=== PATIENT | female | born 1945 | race Caucasian/White ===

== ENCOUNTER 2020-03-14 12:09 | Day surgery (SDC) | payer OTHER ==
[2020-03-07 13:32] VITALS: BMI 34.9
[2020-03-14] MEDS ORDERED: ROPIVACAINE HCL 0.5% 30ML VIAL ONE (13:13)
[2020-03-14] MEDS ORDERED: MIDAZOLAM HCL 2 MG/2 ML SINGLE DOSE VIAL ONE (13:13)
[2020-03-14] MEDS ORDERED: PROPOFOL 20 ML ONE ×2 (13:26→14:11)
[2020-03-14] MEDS ORDERED: DEXAMETHASONE SOD PHOSPHATE 4 MG/1 ML VIAL ONE ×2 (13:26→14:07)
[2020-03-14] MEDS ORDERED: ONDANSETRON 4 MG/2 ML VIAL ONE ×3 (13:26→16:25)
[2020-03-14] MEDS ORDERED: EPHEDRINE SULFATE/0.9% NACL/PF 50 MG/10 ML SYRINGE NR ONE (13:36)
[2020-03-14] MEDS ORDERED: KETOROLAC TROMETHAMINE 30 MG/1 ML VIAL ONE (14:00)
[2020-03-14] MEDS ORDERED: SUCCINYLCHOLINE CHLORIDE 200 MG/10 ML SYRINGE ONE (14:12)
[2020-03-14] MEDS ORDERED: ceFAZolin SODIUM 1 GM VIAL ONE (14:19)
[2020-03-14] MEDS ORDERED: ONDANSETRON 4 MG/2 ML VIAL IVPUSH ONE (16:18)
--- NOTE | 2020-03-14 16:20 | OP ---
DATE OF OPERATION: 03/14/2020 PREOPERATIVE DIAGNOSIS: Left shoulder rotator cuff tear. POSTOPERATIVE DIAGNOSES: 1. Left shoulder supraspinatus rotator cuff tear. 2. Left shoulder proximal biceps tear with labral tearing. 3. Left shoulder subacromial impingement with anterior inferior subacromial spur. OPERATIVE PROCEDURE: 1. Left shoulder operative arthroscopy with repair of rotator cuff. 2. Left shoulder proximal biceps tenotomy. 3. Left shoulder arthroscopic subacromial decompression with anterior inferior acromioplasty. SURGEON: Perry Howard MD CASINO CASHIER MANAGER: LEATHA Bah ANESTHESIA: Regional. COMPLICATIONS: None. ESTIMATED BLOOD LOSS: Minimal. INDICATIONS FOR PROCEDURE: A 74-year-old female with the above finding, indicated for operative treatment. Risks, benefits and alternatives were discussed with her at length and proper informed consent was obtained. PROCEDURE: After proper identification of patient and correct operative site, patient was brought to the operating room, placed supine on the table, prominences well padded. Regional anesthesia was given. Patient was placed in the beach chair position. Left upper extremity was prepped and draped in usual sterile fashion. In-line cervical position was maintained throughout the procedure and all points of contact were well padded. Arthroscopy was performed through posterior, lateral and anterior portals. All portals were made with skin incision only and blunt dissection down to the joint capsule. Glenohumeral joint was observed which had mild arthrosis, significant fraying of the anterior and superior labrum. It was debrided with mechanical shaver. Extensive tearing of the proximal biceps tendon was noted and a proximal biceps tenotomy was performed at its root allowing the remainder of the biceps to fall into the arm. Subscapularis was intact with only mild fraying which was debrided. The anterior labrum was debrided. Superior labrum was debrided. Moderate synovitis was noted on the anterior aspect of the shoulder which was also debrided. No loose bodies were noted in the axillary pouch. Glenohumeral ligaments were intact. Rotator cuff with signs of a full-thickness tear with minimal retraction. Anterior-posterior dimension of the tear was approximately 1.5 cm to 2 cm. It was retracted about 5 mm. This was debrided along with the greater tuberosity being debrided. Arthroscope was then introduced in the subacromial space where a significant bursitis was noted and a bursectomy was performed and a subacromial decompression was performed. A large anterior inferior subacromial spur was noted and a subacromial spur excision was performed. This created adequate space. The rotator cuff was then mobilized to the greater tuberosity and was repaired using an Arthrex SpeedBridge type device, double-row equivalent. This was performed by placing 2 SwiveLocks medially loaded with FiberTape. The FiberTape was passed through the rotator cuff and crisscrossed and attached laterally to accomplish a double-row equivalent repair with 2 further Arthrex SwiveLock anchors. This provided secure stable repair of the rotator cuff. Shoulder was taken through range of motion. There was no further impingement. The rotator cuff was stable. Wounds were irrigated and repaired with 5-0 nylon sutures. Sterile dressings were applied. Sling was placed. Patient was reversed from anesthesia, brought to recovery in stable condition. She tolerated the procedure well. Michael Mccauley, the political science research assistant, was integral throughout the procedure. He was necessary to hold positioning of the shoulder and hold the arthroscope and position the arthroscope during repair, and this procedure could not have been performed without a skilled operative political science research assistant. Venus [id number]
[2020-03-14] MEDS ORDERED: ONDANSETRON 4 MG/2 ML VIAL IVPUSH PRN (16:35)
[2020-03-14] MEDS ORDERED: oxyCODONE HCL 5 MG TABLET PO PRN ×2 (16:35)
[2020-03-14] MEDS ORDERED: LACTATED RINGERS SOLUTION 1,000 ML IV SCH (16:45)
[2020-03-14 18:03] VITALS: BP 123/60; PULSE 90; TEMP 95
== END 2020-03-14 18:03 | disposition home or self-care (01) ==
LOC: FASU 12:09
PROVIDERS: ATTEND Orthopaedic Surgery Hand Surgery
PROC: 0LQ24ZZ Repair Left Shoulder Tendon, Percutaneous Endoscopic Approach (ICD-10-PCS; principal; 2020-03-14 14:27)
PROC: 0RNK4ZZ Release Left Shoulder Joint, Percutaneous Endoscopic Approach (ICD-10-PCS; 2020-03-14 14:27)
PROC: 0LN24ZZ Release Left Shoulder Tendon, Percutaneous Endoscopic Approach (ICD-10-PCS; 2020-03-14 14:27)
DX: M75.122 Complete rotator cuff tear or rupture of left shoulder, not specified as traumatic (principal); M66.812 Spontaneous rupture of other tendons, left shoulder; M24.112 Other articular cartilage disorders, left shoulder; M75.42 Impingement syndrome of left shoulder; M25.712 Osteophyte, left shoulder
CPT/HCPCS: 94760